=== PATIENT | female | born 1970 | race Two or more races ===

== ENCOUNTER → 2024-11-09 | Outpatient (CLI) | payer MEDICAID, SELFPAY ==
--- NOTE | 2024-11-09 10:30 | XR_ITS ---
Examination: Breast ultrasound complete, bilateral Date and time of exam: November 09, 2024 1106 hours, comparison December 09, 2023 INDICATIONS: Patient states left nipple pain beginning 3 days ago. Technique: Real-time grayscale ultrasonographic imaging bilateral breasts, including all 4 quadrants as well as nipple retroareolar and axillary regions. Findings: Sonographic images right breast 1:00 cyst 5 x 6 mm 2:00 nodule circumscribed 5 x 4 mm 4.9 cm right axillary lymph node Sonographic images left breast 12:00 cyst 6 x 8 mm Smaller cysts IMPRESSION: BI-RADS Category 3: Probably benign findings. Recommend 1 additional 6 month right breast sonogram follow-up to document stability of 2:00 nodule described above
--- NOTE | 2024-11-09 11:30 | XR_ITS ---
Examination: Diagnostic digital mammography, bilateral Computer aided detection 3-D breast Tomosynthesis, bilateral Date and time of exam: November 09, 2024 1123 hours INDICATIONS: Mammogram December 09, 2023 4 mm nodule retroareolar oval region right breast Technique: Nonmagnified MLO, CC views of the breasts to been obtained, reconstructed from 3-D Tomosynthesis images. R2 computer aided detection program utilized for evaluation of suspicious masses and/or abnormal calcifications. 3-D Tomosynthesis images obtained. Findings: Scattered areas of fibroglandular density. Benign calcifications No suspicious nodules on the mammography Impression: BI-RADS Category 2: Benign findings Recommend yearly follow-up mammography Please see the right breast sonogram report today indicating 2:00 nodule, recommend a six-month right breast sonogram follow-up to document stability of this nodule.
== END | disposition home or self-care (01) ==
PROVIDERS: PCP Physician Assistant; Referring Provider Physician Assistant; Visit Provider Physician Assistant
DX: R92.323 Mammographic fibroglandular density, bilateral breasts (principal); N63.11 Unspecified lump in the right breast, upper outer quadrant
CPT/HCPCS: 76641; 77062; 77066; G0279